=== PATIENT | female | born 1995 | race Caucasian/White ===

== ENCOUNTER 2021-08-10 23:40 | Emergency (ER) | payer OTHER ==
[~2021-08-10] VITALS: Ht 160 cm; Wt 82.6 kg
[2021-08-10 23:58] VITALS: BP 122/70
--- NOTE | 2021-08-11 00:07 | NUR ---
AMBULATED TO BED 7 FROM TRIAGE
--- NOTE | 2021-08-11 00:19 | NUR ---
Dr. Bustillo examining patient.
--- NOTE | 2021-08-11 00:49 | NUR ---
PT TAKEN TO CT
--- NOTE | 2021-08-11 00:55 | NUR ---
PT RETURN FROM CT
--- NOTE | 2021-08-11 01:00 | NUR ---
26 F BIB SELF FOR LEFT ARM NUMBNESS AND TINGLING. PT SAYS IT HAS BEEN FEELING THIS WAY SINCE SUNDAY. PT HAS ALSO HAD CHEST PAIN 1 WEEK AGO. PT MOTHER ADVISED TO TAKE A BABY ASPIRIN. PT HAD CIVID IN JUN. PT IS 3X VACCINATED. PT DENIES N/V/D; SKIN IS PINK/WARM/DRY; AAOX4 WITH EVEN AND STEADY GAIT; LUNGS CLEAR BL; PT IS NKA. NO HOME MEDS OR PMH. HR EVEN AND REGULAR; PT DENIES ANY FEVER, CP, SOB, OR COUGH AT THIS TIME; VSS; PATIENT POSITIONED FOR COMFORT; HOB ELEVATED; BEDRAILS UP X2; BED DOWN.
[2021-08-11 01:25] LABS: ANION GAP 10.1 (8-16); CARBON DIOXIDE 27.9 mmol/L (21-32); CREATININE 0.7 mg/dL (0.6-1.3)
[2021-08-11] MEDS ORDERED: CYCL-711 PO (01:48)
[2021-08-11 01:58] VITALS: BP 110/70
--- NOTE | 2021-08-11 01:58 | NUR ---
Patient discharged with v/s stable. Written and verbal after care instructions given and explained. Patient alert, oriented and verbalized understanding of instructions. Ambulatory with steady gait. All questions addressed prior to discharge. ID band removed. Patient advised to follow up with PMD. Rx of FLEXERIL given. Opportunity to ask questions provided and answered.
== END 2021-08-11 01:58 | disposition home or self-care (01) ==
LOC: MED 23:40
DX: R20.2 Paresthesia of skin (principal); M62.838 Other muscle spasm; Z79.899 Other long term (current) drug therapy
CPT/HCPCS: 36415; 70450; 80048; 84703; 93005; 99285